=== PATIENT | female | born 1940 | race Caucasian/White ===

== ENCOUNTER 2020-04-01 14:38 | Outpatient (REF) | payer MEDICARE, SELFPAY ==
[2020-04-01 15:37] LABS: MANUAL DIFF FLAG NO
[2020-04-01 15:43] LABS: Basophils Absolute Auto 0.1 X10*3/uL (0.0-0.2); Eosinophils Absolute Auto 0.3 X10*3/uL (0.0-0.4); Eosinophils Percent Auto 3.5 % (0-4); Hematocrit 43.1 % (37-47); Hemoglobin 13.4 g/dl (12.0-16.0); Imm Gran Abs Auto 0.03 X10*3/uL (0.00-0.03); Imm Gran Pct Auto 0.4 % (0.0-0.4); Lymphocytes Absolute Auto 1.4 X10*3/uL (1.2-4.9); Lymphocytes Percent Auto 17.6 % (20-40); Mean Corpuscular HGB Conc 31.1 g/dl (31.0-35.0); Mean Corpuscular Hemoglobin 29.5 pg (27.0-33.0); Mean Corpuscular Volume 94.7 fL (80-98); Mean Platelet Volume 8.7 fL (9.4-12.3); Monocytes Absolute Auto 0.6 X10*3/uL (0.1-1.2); Monocytes Percent Auto 7.9 % (2-11); Neutrophils Absolute Auto 5.4 X10*3/uL (2.0-8.3); Neutrophils Percent Auto 69.6 % (45-73); Platelet Count 258 X10*3/uL (160-400); Red Blood Count 4.55 X10*6/uL (4.20-5.50); Red Cell Distribution Width 14.8 % (11.0-16.0); White Blood Count 7.7 X10*3/uL (4.8-10.8)
[2020-04-01 16:06] LABS: Alanine Aminotransferase 12 U/L (0-31); Alkaline Phosphatase 90 U/L (39-117); Anion Gap 13 (12-20); Aspartate Amino Transferase 16 U/L (5-31); Bilirubin Total 1.3 mg/dL (0.0-1.0); Blood Urea Nitrogen 11 mg/dL (9-16); Calcium 8.8 mg/dL (8.4-10.2); Carbon Dioxide 32 mmol/L (22-29); Chloride 100 mmol/L (96-108); Cholesterol 161 mg/dL; Estimated Glomerular Filt Rate 57; Glucose Fasting 117 mg/dL (60-99); HDL Cholesterol 42 mg/dL; LDL Cholesterol Calculated 99 mg/dl; Potassium 3.9 mmol/l (3.3-5.1); Sodium 141 mmol/L (135-145); Total Protein 6.5 g/dL (6.5-8.0); Triglycerides 103 mg/dL; Uric Acid 5.8 mg/dL (2.4-5.7)
[2020-04-01 16:08] LABS: B Type Natriuretic Peptide 157 pg/mL (<100)
[2020-04-01 16:16] LABS: Estimated Average Glucose 134 mg/dL; Hemoglobin A1c % 6.3 %
[2020-04-01 16:27] LABS: TSH reflex Free T4 3.17 mIU/mL (0.32-4.0)
[2020-04-01 16:38] LABS: Folate 5.2 ng/mL (> or = 4.0); Vitamin B12 486 pg/mL (200-900)
== END 2020-04-01 14:39 | disposition home or self-care (01) ==
LOC: HO.LAB 14:38
PROVIDERS: PCP Internal Medicine; Visit Provider Internal Medicine
DX: J44.9 Chronic obstructive pulmonary disease, unspecified (principal); I10 Essential (primary) hypertension; E78.5 Hyperlipidemia, unspecified; R73.01 Impaired fasting glucose; M10.9 Gout, unspecified; I50.9 Heart failure, unspecified; G62.9 Polyneuropathy, unspecified; I48.91 Unspecified atrial fibrillation; E66.9 Obesity, unspecified
CPT/HCPCS: 36415; 80053; 80061; 82607; 82746; 83036; 83880; 84443; 84550; 85025

== ENCOUNTER 2020-04-04 12:29 | Outpatient (REF) | payer MEDICARE, SELFPAY ==
[2020-04-04 13:07] LABS: Glucose Urine UA NEG (NEG); Leukocyte Esterase Urine 1+ (NEG); Nitrite Urine NEG (NEG); PH 5.5 (5.0-8.0); Specific Gravity - Urine 1.025 (1.005-1.025); Urine Blood 3+ (NEG); Urine Ketones NEG (NEG); Urine Protein 1+ MG/DL (NEG-TRACE)
[2020-04-04 13:09] LABS: Appearance Urine HAZY; Color Urine YELLOW
[2020-04-04 13:15] LABS: Bacteria Urine 1+ /LPF; Calcium Oxalate Crystals Urine 1+ /LPF; Mucus Urine 3+ /LPF; RBC Urine TNTC /HPF (0); Renal Epithelial Cells Urine 1+ /LPF; Squamous Epithelial Cell Urine 3+ /LPF
== END 2020-04-04 12:30 | disposition home or self-care (01) ==
LOC: HO.LNP 12:29
PROVIDERS: PCP Internal Medicine; Visit Provider Internal Medicine
DX: I10 Essential (primary) hypertension (principal); J44.9 Chronic obstructive pulmonary disease, unspecified; M10.9 Gout, unspecified
CPT/HCPCS: 81001; 87086

== ENCOUNTER → 2020-05-02 14:02 | Outpatient (BNVA) | payer MEDICARE, SELFPAY | PROVIDERS: PCP Internal Medicine; Visit Provider Internal Medicine Cardiovascular Disease | DX: I50.30 Unspecified diastolic (congestive) heart failure (principal); I11.0 Hypertensive heart disease with heart failure; I48.20 Chronic atrial fibrillation, unspecified; I73.9 Peripheral vascular disease, unspecified | CPT/HCPCS: 99212 ==

== ENCOUNTER 2020-09-19 15:11 | Outpatient (REF) | payer MEDICARE, SELFPAY ==
[2020-09-19 16:19] LABS: MANUAL DIFF FLAG NO
[2020-09-19 16:22] LABS: Glucose Urine UA NEG (NEG); Leukocyte Esterase Urine TRACE (NEG); Nitrite Urine NEG (NEG); UACC Culture Trigger YES; Urine Blood TRACE (NEG); Urine Ketones NEG (NEG); Urine Protein TRACE MG/DL (NEG-TRACE)
[2020-09-19 16:27] LABS: Basophils Absolute Auto 0.1 X10*3/uL (0.0-0.2); Basophils Percent Auto 0.7 % (0-2); Eosinophils Absolute Auto 0.3 X10*3/uL (0.0-0.4); Hematocrit 42.7 % (37-47); Hemoglobin 13.5 g/dl (12.0-16.0); Imm Gran Abs Auto 0.03 X10*3/uL (0.00-0.03); Imm Gran Pct Auto 0.4 % (0.0-0.4); Lymphocytes Absolute Auto 1.6 X10*3/uL (1.2-4.9); Lymphocytes Percent Auto 19.5 % (20-40); Mean Corpuscular HGB Conc 31.6 g/dl (31.0-35.0); Mean Corpuscular Hemoglobin 30.6 pg (27.0-33.0); Mean Corpuscular Volume 96.8 fL (80-98); Monocytes Absolute Auto 0.7 X10*3/uL (0.1-1.2); Monocytes Percent Auto 8.6 % (2-11); Neutrophils Absolute Auto 5.7 X10*3/uL (2.0-8.3); Neutrophils Percent Auto 67.8 % (45-73); Platelet Count 222 X10*3/uL (160-400); Red Blood Count 4.41 X10*6/uL (4.20-5.50); Red Cell Distribution Width 14.9 % (11.0-16.0); White Blood Count 8.4 X10*3/uL (4.8-10.8)
[2020-09-19 16:46] LABS: Alanine Aminotransferase 14 U/L (0-31); Albumin Level 4.2 g/dL (3.5-5.0); Alkaline Phosphatase 80 U/L (39-117); Anion Gap 13 (12-20); Aspartate Amino Transferase 18 U/L (5-31); Bilirubin Total 1.4 mg/dL (0.0-1.0); Blood Urea Nitrogen 16 mg/dL (9-16); Calcium 9.8 mg/dL (8.4-10.2); Carbon Dioxide 34 mmol/L (22-29); Chloride 98 mmol/L (96-108); Cholesterol 181 mg/dL; Estimated Glomerular Filt Rate 52; Glucose Random 110 mg/dL (60-115); HDL Cholesterol 44 mg/dL; LDL Cholesterol Calculated 115 mg/dl; Potassium 3.5 mmol/L (3.3-5.1); Sodium 141 mmol/L (135-145); Total Protein 6.5 g/dL (6.5-8.0); Triglycerides 113 mg/dL; Uric Acid 7.7 mg/dL (2.4-5.7)
[2020-09-19 16:53] LABS: B Type Natriuretic Peptide 184 pg/mL (<100)
[2020-09-19 17:04] LABS: Appearance Urine CLEAR; Color Urine YELLOW
[2020-09-19 17:07] LABS: TSH reflex Free T4 1.65 uIU/mL (0.32-4.0)
[2020-09-19 17:19] LABS: Folate 4.2 ng/mL (> or = 4.0); Vitamin B12 399 pg/mL (200-900)
[2020-09-19 17:26] LABS: Bacteria Urine 2+ /LPF; Renal Epithelial Cells Urine 1+ /LPF; Squamous Epithelial Cell Urine 3+ /LPF; UACC CULT YES
[2020-09-20 04:57] LABS: Estimated Average Glucose 114 mg/dL; Hemoglobin A1c % 5.6 %
== END 2020-09-19 15:12 | disposition home or self-care (01) ==
LOC: HO.LAB 15:11
PROVIDERS: PCP Internal Medicine; Visit Provider Internal Medicine
DX: I11.0 Hypertensive heart disease with heart failure (principal); I50.9 Heart failure, unspecified; I48.91 Unspecified atrial fibrillation; E78.5 Hyperlipidemia, unspecified; E66.9 Obesity, unspecified; M10.9 Gout, unspecified; G62.9 Polyneuropathy, unspecified; J44.9 Chronic obstructive pulmonary disease, unspecified; R73.01 Impaired fasting glucose
CPT/HCPCS: 36415; 80053; 80061; 81001; 82607; 82746; 83036; 83880; 84443; 84550; 85025; 87086

== ENCOUNTER 2020-09-29 10:24 | Emergency (ER) | payer MEDICARE, SELFPAY ==
[2020-09-29] VITALS (9 sets, daily range): BP systolic 137–192; BP diastolic 70–93; PULSE 83–96; RESP 18–21; TEMP 35.9; O2SAT 94–98; BMI 34.4
--- NOTE | ~2020-09-29 | CT_ITS ---
EXAMINATION: CT angio head neck CLINICAL INFORMATION: Carotid occlusion/stroke. COMPARISON: CT scan of the head 09/29/2020. TECHNIQUE: Right Of Way Cutter images were obtained. A CT angiogram of the head and neck was performed in the arterial phase after the intravenous administration of 50 mL Omnipaque 350. Delayed postcontrast images of the head were also obtained. MIP reconstructions were generated in multiple orientations at the acquisition workstation. Multiple three-dimensional surface rendered images and maximum intensity projection images were generated on a dedicated 3-D lab workstation. Arterial stenoses are measured in accordance with NASCET criteria or similar method if applicable. This CT examination was performed using dose optimization techniques as appropriate, including one or more of the following: Automated exposure control, iterative reconstruction, and adjustment of technique factors (mA and/or kVp) according to patient size (this includes techniques or standardized protocols for targeted exams where dose is matched to indication/reason for exam). Total exam dose-length product 1630 mGy-cm FINDINGS: Head: Postcontrast images reveal no abnormal mass or enhancement within the intracranial compartment. There are scattered nonspecific foci of hypoattenuation within the white matter that most likely represent a chronic manifestation of small vessel. Wright-white matter differentiation is otherwise preserved and there is no evidence of acute territorial infarct. No intracranial mass effect or midline shift. Lateral and third ventricles are normal. No hydrocephalus. The calvarium and skull base are intact. Mastoid air cells and middle ear cavities are well aerated. No active paranasal sinus disease. CT angiogram neck: The aortic arch apex is normal. 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 Scattered atheromatous calcifications involve both common carotid arteries and carotid bifurcations without associated stenosis. The extracranial internal carotid arteries are patent. Mild to moderate focal narrowing at the origin of the right vertebral artery. The cervical segments of the vertebral arteries are otherwise widely patent. CT angiogram head: Scattered atheromatous calcification involves the cavernous and supraclinoid segments of both internal carotid arteries without associated vascular stenosis. The intradural vertebral artery segments are widely patent. There is however mild to moderate diffuse irregular narrowing involving the basilar artery. Mild to moderate segmental narrowing involving both posterior cerebral arteries. Anterior and middle cerebral arteries are unremarkable. No intracranial large vessel occlusion. Other: There are heterogeneously enhancing nodules within the left lobe of the thyroid gland extending into the anterior mediastinum causing rightward displacement of the subglottic airway. Soft tissues of the neck are otherwise unremarkable. There is centrilobular emphysema involving the apices of both lungs. There is advanced multilevel degenerative spondylosis of the cervical spine. No worrisome lytic or blastic osseous lesion. CT/CT angio head neck IMPRESSION: The left subclavian artery is occluded at its origin and there is reconstitution of contrast filling of the vessel distally, presumably secondary to retrograde flow through the left vertebral artery. These findings indicate the likelihood of underlying subclavian steal syndrome. Mild to moderate focal narrowing at the origin of the right vertebral artery. Cervical segments of the carotid arteries are widely patent. There is mild to moderate diffuse irregular narrowing involving the basilar artery and segmental narrowing involving both posterior cerebral arteries. Otherwise no intracranial large vessel occlusion. 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 Centrilobular emphysema is visualized at the apices of both lungs.
--- NOTE | ~2020-09-29 | CT_ITS ---
EXAMINATION: CT BRAIN AND CT CERVICAL SPINE WITHOUT CONTRAST. CLINICAL INFORMATION: Dizziness for several days with fall COMPARISON: CT brain 09/15/2018 TECHNIQUE: 5 mm thin axial and reformatted 2 mm thin sagittal and coronal images of were obtained. Subsequently axial 3 mm thin and reformatted 2 mm thin sagittal and coronal images of chest cervical spine were obtained. DLP [id number] FINDINGS: Brain: There is no acute intra-axial, extra-axial bleed, masses or midline shift. Both lateral ventricles are symmetrical in size and configuration but enlarged. There is diffuse periventricular hypodensity suggestive of chronic small vessel ischemic changes. Bone windows reveal no calvarial abnormality. There is no scalp soft tissue abnormality. Bilateral paranasal sinuses and mastoid air cells are well-aerated. Cervical spine: There is mild straightening of cervical lordosis. The vertebral heights and alignment is normal. There is loss of C4-C5, C5-C6 and C6-C7 disc heights. Moderate ventral and dorsal spondylosis C4-C5, C5-C6 and C6-C7 disc levels. No visible acute fracture, dislocation or lytic process seen. There is mild superior spondylosis at C1-C2 disc level as well. There is moderate right C2-C3, bilateral C3-C4, C5-C6 facet joint arthropathy and hypertrophy. Bilateral parotid, submandibular glands are unremarkable. There is significantly enlarged and heterogenous left thyroid lobe with substernal extension likely goiter. There is mild shift of trachea to the right. The lung apices are clear. CT/CT cervical spine wo con IMPRESSION: No acute intracranial process seen. Age-related mild cerebral volume loss with chronic small vessel ischemic changes. Straightening of cervical lordosis likely spasm. There are degenerative disc changes C4-C5, C5-C6 and C6-C7 disc levels with spondylosis. No visible acute fracture or dislocation seen. 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
--- NOTE | ~2020-09-29 | CT_ITS ---
EXAMINATION: CT CHEST WITHOUT CONTRAST CLINICAL INFORMATION: Pneumonia. COMPARISON: None. TECHNIQUE: Multidetector volumetric CT imaging of the chest was done. Axial MIP volume rendering provided. Sagittal and coronal reformatted images were obtained. This CT examination was performed using dose optimization techniques as appropriate, variously including the following: *Automated exposure control *Adjustment of mA and/or kV according to patient size (this includes techniques or standardized protocols for targeted exams where dose is matched to indication/reason for exam; i.e. extremities or head) *Use of iterative reconstruction technique DLP: 429 mGy-cm. FINDINGS: SPINE SPECIALIST: Hyperinflated lungs. LUNGS: There is centrilobular emphysema with diffuse ground-glass attenuation seen throughout both lungs. There is a 2 mm nodule left upper lobe image 82/5, a 2 mm nodule right upper lobe image 90/5, a 2 nodule right upper lobe image 142/5, probably calcified nodule right lower lobe image 198/5 and calcified 2 mm nodule left lower lobe, CP angle image 445/5. There are focal atelectatic changes right middle lobe, plate-like atelectasis right lower lobe and left lower lobe. There is mild thickening of bilateral superior major fissures. MEDIASTINUM: The left thyroid lobe is heterogenous and enlarged with substernal extension suggestive of goiter. Central trachea and the bronchi are widely patent. The heart size is normal. Mild ectasia of the aorta is noted but no definite aneurysmal dilatation. Heart size enlarged with coronary artery calcifications present. No abnormal size mediastinal or hilar lymph nodes seen. There is a small hiatal hernia. PLEURA: There is no pleural effusion. No pleural mass or thickening. AXILLA: No lymphadenopathy. UPPER ABDOMEN: Unremarkable. OSSEOUS STRUCTURES: No lytic or sclerotic process seen. There is moderate ventral spondylosis in mid dorsal spine. CT/CT chest wo con IMPRESSION: Emphysema with diffuse ground-glass attenuation, nonspecific. There are several calcified and noncalcified pulmonary nodules in the range of 1-2 mm. No confluent infiltrate. There are atelectatic changes as described above. There is mild bilateral superior major pleural thickening.
--- NOTE | ~2020-09-29 | XR_ITS ---
EXAMINATION: XR CHEST CLINICAL INFORMATION: Pneumonia. COMPARISON: Chest 4:30 TECHNIQUE: Frontal view of the chest was obtained. FINDINGS: The lungs are well-expanded with increased markings in both upper lobes. The heart size is enlarged. Pulmonary vascularity is within normal limits. No gross bony abnormality. XR/XR chest 1V IMPRESSION: Increased interstitial markings in both upper lobes question interstitial pneumonitis or edema.
--- NOTE | 2020-09-29 10:43 | ECG_ITS ---
Test Reason : DIZZINESS Blood Pressure : / mmHG Vent. Rate : 078 BPM Atrial Rate : 083 BPM P-R Int : 000 ms QRS Dur : 158 ms QT Int : 446 ms P-R-T Axes : 000 -52 114 degrees QTc Int : 508 ms Atrial fibrillation with premature ventricular or aberrantly conducted complexes Left axis deviation Left bundle branch block Abnormal ECG When compared with ECG of 15-SEP-2018 05:03, No significant change was found Referred By: Maynor Velazquez Electronically Signed By:BRANDON VARELA MD
--- NOTE | 2020-09-29 11:06 | ED.DIZZY ---
HPI - Dizziness General Chief Complaint: Dizziness Stated Complaint: dizziness Time Seen by Provider: 09/29/20 10:43 Source: patient Mode of arrival: ambulatory Limitations: no limitations History of Present Illness HPI Narrative: Patient presents to ED for dizziness described as the rooms spinning for the past 2 days. Patient states being hard to ambulate due to dizziness. Patient states she has had this problem before in the past was informed she had vertigo and was on meclizine. Patient did not have any meclizine at home. Patient denies any chest pain, shortness of breath, slurred speech, loss of vision, paralysis of extremities, facial droop, headache, or any recent trauma. MD elicited complaint: dizziness Related Data Home Medications Medication Instructions Recorded Confirmed apixaban 5 mg tablet 5 mg PO BID 05/02/20 09/21/20 gabapentin 100 mg capsule 100 mg PO BEDTIME cap 05/02/20 09/21/20 nortriptyline 25 mg capsule 25 mg PO BID cap 05/02/20 09/21/20 Previous Rx's Medication Instructions Recorded atorvastatin 40 mg tablet 40 mg PO DAILY #90 tab 03/08/20 furosemide 40 mg tablet See Rx Instructions PO DAILY 90 05/19/20 Days #150 tab metoprolol succinate 25 mg 25 mg PO DAILY 90 Days #90 tab 05/19/20 tablet,extended release 24 hr allopurinol 100 mg tablet 100 mg PO BID #180 tab 05/31/20 trazodone 50 mg tablet 75 mg PO BEDTIME PRN 90 Days #135 09/21/20 tab aspirin 81 mg PO DAILY #30 tab 09/29/20 meclizine 25 mg PO TID PRN #30 tab 09/29/20 meclizine 12.5 mg tablet 12.5 mg PO TID #30 tab 09/29/20 Allergies Allergy/AdvReac Type Severity Reaction Status Date / Time CHAIM Inhibitors Allergy Unknown Cough Verified 09/21/20 16:38 lorazepam [Ativan] AdvReac Unknown blacked out Verified 09/21/20 16:38 zolpidem AdvReac Unknown sleepwalkin Verified 09/21/20 16:38 g Review of Systems Review of Systems: Yes all other systems are reviewed and are negative Constitutional: Constitutional: Reports as per HPI and Reports no additional constitutional complaints Eyes: Eyes: Reports as per HPI and Reports no additional eye complaints ENT: Reports system reviewed and no additional complaints, except as documented, Reports as per HPI, Reports vertigo and Reports dizziness Cardiovascular: Cardiovascular: Reports as per HPI and Reports no additional cardiovascular complaints Respiratory: Respiratory: Reports as per HPI and Reports no additional respiratory complaints Gastrointestinal: Gastrointestinal: Reports as per HPI and Reports no additional gastrointestinal complaints Genitourinary: Genitourinary: Reports no additional female genitourinary complaints and Reports as per HPI Musculoskeletal: Musculoskeletal: Reports no additional musculoskeletal complaints and Reports as per HPI Neurologic: Reports system reviewed and no additional complaints, except as documented, Reports as per HPI, Reports vertigo and Reports dizziness Psychiatric: Psychiatric: Reports no additional psychiatric complaints and Reports as per HPI [facility] Past Medical History Medical History (Updated 09/29/20 @ 17:20 by JEFFERY Marrero) (HFpEF) heart failure with preserved ejection fraction Benign essential hypertension Biatrial enlargement Chronic atrial fibrillation Gout Hematuria, microscopic HTN (hypertension) Insomnia Neuropathy Obesity Obesity (BMI 30-39.9) Pure hypercholesterolemia PVD (peripheral vascular disease) Urinary incontinence Surgical History (Updated 09/22/20 @ 01:34 by Kostas Baltazar MD) History of cataract surgery History of knee replacement procedure of right knee History of left knee replacement History of tonsillectomy Hx of basal cell carcinoma excision Family History Family History Father Alcoholism Mother Colon cancer Brother No problems noted. Sister In good health Son In good health Son In good health Daughter In good health Daughter In good health Social History Social History Alcohol intake: never Smoking Status: Never smoker Use of substances other than those prescribed or required for medical reasons: No Advance Directives: No Advance Directives Information Provided: No Physical Exam Vital Signs: Vital Signs: Last Vital Signs Temp 96.6 F L 09/29/20 10:31 Pulse 96 09/29/20 17:59 Resp 18 09/29/20 17:59 BP 192/93 H 09/29/20 17:59 Pulse Ox 97 09/29/20 15:20 Body Mass Index 34.4 Const: General: cooperative, healthy appearing, comfortable, no acute distress, well developed, alert, awake and Physically active Orientation/consciousness: patient oriented x3 HENMT: Head: Yes normal to inspection, Yes No palpable skull fracture present, Yes normocephalic and Yes atraumatic Eyes: Other: Positive for mild horizontal nystagmus. General: appearance normal, both eyes and all related structures Neck: Neck: Yes normal visual inspection, Yes full ROM, Yes no lymphadenopathy, Yes no meningeal signs, Yes trachea midline, Yes supple and No tender Chest: Chest palpation & inspection: normal inspection of the chest and normal palpation of entire chest wall Resp: Effort & Inspection: normal respiratory effort and able to speak in complete sentences Auscultation: clear to auscultation bilaterally Cardio: Jugular venous distension: no JVD Heart sounds: S1 normal heart sound present and S2 normal heart sound present GI: Inspection: Yes normal to inspection and No abdominal wall ecchymosis Palpation (GI): Soft to palpation, not firm, nontender, no guarding and not rigid : General: No CVA tenderness and Yes no CVA tenderness Back/Spine/Pelvis: Back: no CVA tenderness, No CVA tenderness and No back tenderness Skin: General skin exam: no rashes or lesions noted and elasticity normal Neuro: Other: Negative facial droop. Negative slurred speech. All extremities equal strength 5+. Negative pronator drift. [id number] and rapid hand movement intact. All cranial nerves intact. negative rhomber General: patient oriented x3, no meningeal signs and CN's II-XI intact bilaterally Cranial nerves: Yes CN's II-XII intact bilaterally Extrem: Other: Chronic lower extremity swelling/pain edema due to CHF General: Yes normal to inspection and Yes full ROM Psych: Appearance: grossly normal, well kempt and not disheveled Course Course Course Narrative: Patient seen for dizziness described as vertigo. Will give meclizine and fluids. Will do orthostatics. We will do cardiac workup due to age and past medical history. Also be sent for head CT. Reevaluation(s) Reevaluation #1: Initial EKG negative for STEMI. Shows rate controlled atrial fibrillation. Head CT negative for bleed or acute stroke. Cervical spine negative for fracture. Chest x-ray shows Edema versus interstitial pneumonitis. Was sent for head CT to evaluate carotids. Patient feels better. Chest CT was ordered by accident not suspecting PE. Patient is not having any chest pain, shortness of breath, or passing out. Patient states no history of DVT. Tried chest CT will be ordered to confirm for pneumonia. Not able to do IV contrast for chest CT or CT of head and neck. Orthostatics negative. Patient feeling better. First troponin negative. Neuro exam is intact. Negative for any neuro deficit. Upon review of history with patient and daughter patient states last week patient fell twice. Patient states both episodes of falling did not occur by dizziness. Patient states both time she tripped and loss of footing which caused her to fall. 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 I was called by radiologist. Due to this reading will call Dr. Moreno of vascular surgery. UA shows UTI will be treated. After receiving meclizine patient still feel dizzy ambulation. Reevaluation #3: Spoke with Dr. Moreno of vascular surgery who states presently patient does not need to be admitted and can be followed up as an outpatient. He was informed of patient's hisotry, physical exam, and diagnostics. He recommends aspirin 81 mg daily. Patient able to ambulate with help with myself and daughter holding her. Patient usually ambulate with a rolling walker which she does not have in the ED. Spoke with hospitalist Dr. Méndez for admission. Tried to admit patient. He evaluated patient's chest CT and states there was no pneumonia on the CT. Also he states patient is not having a UTI and this is a dirty catch. Patient not having urinary symptoms. He does not recommend any antibiotics for the urine or chest CT reading pain CT shows emphysema. Patient informed me she has history of COPD. Dr. Méndez evaluated patient's labs, vital signs, and imagings and does not recommend admission. Dr. Méndez recommended states patient could benefit from placement possibly short-term rehab. Spoke with Kristina of case managment about placement and she states she will talk to family if there was agreeable to physical therapy for possible placement to short-term rehab. Spoke with patient and in front of her daughter she states she did not want to be placed in short-term rehab or evaluated by physical therapy. She did not want to stay overnight. She states when she gets home she will be able to walk with her rolling walker. And patient states this morning patient although she was dizzy was able to ambulate with her walker at home all day before coming to the ER. Not suspecting posterior infarction. Negative Romberg test and patient able to ambulate with help. Negative for ataxia. Second troponin did not increase by 50%. Blood pressure was elevated later during ED visit due to patient not taking her hypertensive meds since the past two days because she thought they will worsen her dizziness. Negaive for any neuro deficits. Patient given her metropolol and lasix dose in the ED before discharge due to repeat blood pressure of systolic 192. Patient states she feels better than she did before discharge. MDM - Dizziness MDM Narrative Medical decision making narrative: Subclavian steal syndrome. Dizziness. Lab Data Result diagrams: 09/29/20 11:42 09/29/20 11:42 Labs: Lab Results 09/29/20 09/29/20 09/29/20 Range/Units 11:42 11:42 11:42 WBC 8.4 (4.8-10.8) X10*3/uL RBC 4.32 (4.20-5.50) X10*6/uL Hgb 13.3 (12.0-16.0) g/dl Hct 42.0 (37-47) % MCV 97.2 (80-98) fL MCH 30.8 (27.0-33.0) pg MCHC 31.7 (31.0-35.0) g/dl RDW 14.9 (11.0-16.0) % Plt Count 224 (160-400) X10*3/uL MPV 8.6 L (9.4-12.3) fL Immature Gran % (Auto) 0.4 (0.0-0.4) % Neut % (Auto) 71.7 (45-73) % Lymph % (Auto) 15.3 L (20-40) % [place] % (Auto) 8.2 (2-11) % Eos % (Auto) 3.6 (0-4) % Baso % (Auto) 0.8 (0-2) % Lymph # (Auto) 1.3 (1.2-4.9) X10*3/uL [place] # (Auto) 0.7 (0.1-1.2) X10*3/uL Eos # (Auto) 0.3 (0.0-0.4) X10*3/uL Baso # (Auto) 0.1 (0.0-0.2) X10*3/uL Abs Immat Gran (auto) 0.03 (0.00-0.03) X10*3/uL Absolute Neuts (auto) 6.1 (2.0-8.3) X10*3/uL Absolute Nucleated RBC 0.000 (0.0-0.012) X10*3/uL Nucleated RBC % (auto) 0.0 (0.0-0.2) /100WBC PT 14.8 H (10.8-13.0) SEC INR 1.2 H (0.9-1.1) APTT 36.5 (24.1-38.0) SEC Sodium 142 (135-145) mmol/L Potassium 3.8 (3.3-5.1) mmol/L Chloride 101 (96-108) mmol/L Carbon Dioxide 34 H (22-29) mmol/L Anion Gap 11 L (12-20) BUN 13 (9-16) mg/dL Creatinine 0.90 (0.5-1.4) mg/dL Estim Creat Clear Calc 59.4 Estimated GFR > 60 Random Glucose 108 (60-115) mg/dL Lactic Acid (0.5-2.0) mmol/L Calcium 9.9 (8.4-10.2) mg/dL Total Bilirubin 1.2 H (0.0-1.0) mg/dL AST 13 (5-31) U/L ALT 12 (0-31) U/L Alkaline Phosphatase 84 (39-117) U/L Troponin I High Sens (<3.5-17.0) ng/L B-Natriuretic Peptide (<100) pg/mL Total Protein 6.2 L (6.5-8.0) g/dL Albumin 4.0 (3.5-5.0) g/dL Urine Color Urine Appearance Urine pH (5.0-8.0) Ur Specific [place] (1.005-1.025) Urine Protein (NEG-TRACE) MG/DL Urine Glucose (UA) (NEG) MG/DL Urine Ketones (NEG) MG/DL Urine Blood (NEG) Urine Nitrite (NEG) Ur Leukocyte Esterase (NEG) Urine RBC (0) /HPF Urine WBC (0-4) /HPF Ur Squamous Epith Cells /LPF Urine Bacteria /LPF Urine Yeast /HPF COVID-19 (BILLY) (Negative) COVID-19 Clin Com 09/29/20 09/29/20 09/29/20 Range/Units 11:42 11:43 11:43 WBC (4.8-10.8) X10*3/uL RBC (4.20-5.50) X10*6/uL Hgb (12.0-16.0) g/dl Hct (37-47) % MCV (80-98) fL MCH (27.0-33.0) pg MCHC (31.0-35.0) g/dl RDW (11.0-16.0) % Plt Count (160-400) X10*3/uL MPV (9.4-12.3) fL Immature Gran % (Auto) (0.0-0.4) % Neut % (Auto) (45-73) % Lymph % (Auto) (20-40) % [place] % (Auto) (2-11) % Eos % (Auto) (0-4) % Baso % (Auto) (0-2) % Lymph # (Auto) (1.2-4.9) X10*3/uL [place] # (Auto) (0.1-1.2) X10*3/uL Eos # (Auto) (0.0-0.4) X10*3/uL Baso # (Auto) (0.0-0.2) X10*3/uL Abs Immat Gran (auto) (0.00-0.03) X10*3/uL Absolute Neuts (auto) (2.0-8.3) X10*3/uL Absolute Nucleated RBC (0.0-0.012) X10*3/uL Nucleated RBC % (auto) (0.0-0.2) /100WBC PT (10.8-13.0) SEC INR (0.9-1.1) APTT (24.1-38.0) SEC Sodium (135-145) mmol/L Potassium (3.3-5.1) mmol/L Chloride (96-108) mmol/L Carbon Dioxide (22-29) mmol/L Anion Gap (12-20) BUN (9-16) mg/dL Creatinine (0.5-1.4) mg/dL Estim Creat Clear Calc Estimated GFR Random Glucose (60-115) mg/dL Lactic Acid (0.5-2.0) mmol/L Calcium (8.4-10.2) mg/dL Total Bilirubin (0.0-1.0) mg/dL AST (5-31) U/L ALT (0-31) U/L Alkaline Phosphatase (39-117) U/L Troponin I High Sens 15.0 (<3.5-17.0) ng/L B-Natriuretic Peptide 169 H (<100) pg/mL Total Protein (6.5-8.0) g/dL Albumin (3.5-5.0) g/dL Urine Color Urine Appearance Urine pH (5.0-8.0) Ur Specific [place] (1.005-1.025) Urine Protein (NEG-TRACE) MG/DL Urine Glucose (UA) (NEG) MG/DL Urine Ketones (NEG) MG/DL Urine Blood (NEG) Urine Nitrite (NEG) Ur Leukocyte Esterase (NEG) Urine RBC (0) /HPF Urine WBC (0-4) /HPF Ur Squamous Epith Cells /LPF Urine Bacteria /LPF Urine Yeast /HPF COVID-19 (BILLY) Negative (Negative) COVID-19 Clin Com See Note 09/29/20 09/29/20 09/29/20 Range/Units 14:11 16:10 16:10 WBC (4.8-10.8) X10*3/uL RBC (4.20-5.50) X10*6/uL Hgb (12.0-16.0) g/dl Hct (37-47) % MCV (80-98) fL MCH (27.0-33.0) pg MCHC (31.0-35.0) g/dl RDW (11.0-16.0) % Plt Count (160-400) X10*3/uL MPV (9.4-12.3) fL Immature Gran % (Auto) (0.0-0.4) % Neut % (Auto) (45-73) % Lymph % (Auto) (20-40) % [place] % (Auto) (2-11) % Eos % (Auto) (0-4) % Baso % (Auto) (0-2) % Lymph # (Auto) (1.2-4.9) X10*3/uL [place] # (Auto) (0.1-1.2) X10*3/uL Eos # (Auto) (0.0-0.4) X10*3/uL Baso # (Auto) (0.0-0.2) X10*3/uL Abs Immat Gran (auto) (0.00-0.03) X10*3/uL Absolute Neuts (auto) (2.0-8.3) X10*3/uL Absolute Nucleated RBC (0.0-0.012) X10*3/uL Nucleated RBC % (auto) (0.0-0.2) /100WBC PT (10.8-13.0) SEC INR (0.9-1.1) APTT (24.1-38.0) SEC Sodium (135-145) mmol/L Potassium (3.3-5.1) mmol/L Chloride (96-108) mmol/L Carbon Dioxide (22-29) mmol/L Anion Gap (12-20) BUN (9-16) mg/dL Creatinine (0.5-1.4) mg/dL Estim Creat Clear Calc Estimated GFR Random Glucose (60-115) mg/dL Lactic Acid 1.0 (0.5-2.0) mmol/L Calcium (8.4-10.2) mg/dL Total Bilirubin (0.0-1.0) mg/dL AST (5-31) U/L ALT (0-31) U/L Alkaline Phosphatase (39-117) U/L Troponin I High Sens 13.9 (<3.5-17.0) ng/L B-Natriuretic Peptide (<100) pg/mL Total Protein (6.5-8.0) g/dL Albumin (3.5-5.0) g/dL Urine Color YELLOW Urine Appearance CLOUDY Urine pH 7.5 (5.0-8.0) Ur Specific [place] <= 1.005 (1.005-1.025) Urine Protein NEG (NEG-TRACE) MG/DL Urine Glucose (UA) NEG (NEG) MG/DL Urine Ketones NEG (NEG) MG/DL Urine Blood TRACE (NEG) Urine Nitrite NEG (NEG) Ur Leukocyte Esterase 2+ H (NEG) Urine RBC 5-9 H (0) /HPF Urine WBC 30-49 H (0-4) /HPF Ur Squamous Epith Cells 4+ /LPF Urine Bacteria 1+ /LPF Urine Yeast TRACE /HPF COVID-19 (BILLY) (Negative) COVID-19 Clin Com ECG Data Interpretation: Atrial fibrillation with premature ventricular complexes. Ventricular rate 78. QRS duration 158. QTC 508. Negative STEMI. Discharge Plan Discharge Clinical Impression: Dizziness, Steal syndrome, subclavian Patient Disposition: Home, Self-Care Instructions: Dizziness (ED) Additional Instructions: Return to the ED for worsening dizziness, slurred speech, loss of vision, paralysis of extremities, headache, inability to walk, facial droop, or any other concerning symptoms. Prescriptions: New meclizine 25 mg tablet 25 mg PO TID PRN (Reason: dizzines) Qty: 30 RF: 0 aspirin 81 mg tablet,chewable 81 mg PO DAILY Qty: 30 RF: 0 No Action atorvastatin 40 mg tablet 40 mg PO DAILY Qty: 90 RF: 3 metoprolol succinate 25 mg tablet extended release 24 hr 25 mg PO DAILY 90 Days Qty: 90 RF: 3 furosemide [Lasix] 40 mg tablet See Rx Instructions PO DAILY 90 Days Qty: 150 RF: 3 allopurinol 100 mg tablet 100 mg PO BID Qty: 180 RF: 3 meclizine 12.5 mg tablet 12.5 mg PO TID Qty: 30 RF: 0 trazodone 50 mg tablet 75 mg PO BEDTIME PRN (Reason: insomnia) 90 Days Qty: 135 RF: 1 apixaban 5 mg tablet 5 mg PO BID RF: 0 gabapentin 100 mg capsule 100 mg PO BEDTIME RF: 0 nortriptyline 25 mg capsule 25 mg PO BID RF: 0 Referrals: Kostas Baltazar MD [Primary Care Provider] - 2 days (Dizziness. Head CT shows subclavian steal syndrome.) Sai Moreno MD [Physician] - 2 days (Subclavian steal syndrome) Print Language: Colombian
[2020-09-29] MEDS: Meclizine HCl 25 MG TABLET 50 MG PO (11:08)
--- NOTE | 2020-09-29 11:33 | PC.NURSE ---
Pt alert, oriented, neuros intact, LSCTA VSS, skin pink, warm, dry. BLE edema daughter reports that is her baseline. O2Sat 88-90% RA while JEFFERY Mcguire at bedside. Pt encouraged to take slow deep breaths o2sat 96-97% RA. IV established x3 attempts. Pt awaiting CT scan, daughter at bedside.
[2020-09-29 11:55] LABS: MANUAL DIFF FLAG NO
[2020-09-29 11:56] LABS: Basophils Absolute Auto 0.1 X10*3/uL (0.0-0.2); Basophils Percent Auto 0.8 % (0-2); Eosinophils Absolute Auto 0.3 X10*3/uL (0.0-0.4); Eosinophils Percent Auto 3.6 % (0-4); Hemoglobin 13.3 g/dl (12.0-16.0); Imm Gran Abs Auto 0.03 X10*3/uL (0.00-0.03); Imm Gran Pct Auto 0.4 % (0.0-0.4); Lymphocytes Absolute Auto 1.3 X10*3/uL (1.2-4.9); Lymphocytes Percent Auto 15.3 % (20-40); Mean Corpuscular HGB Conc 31.7 g/dl (31.0-35.0); Mean Corpuscular Hemoglobin 30.8 pg (27.0-33.0); Mean Corpuscular Volume 97.2 fL (80-98); Mean Platelet Volume 8.6 fL (9.4-12.3); Monocytes Absolute Auto 0.7 X10*3/uL (0.1-1.2); Monocytes Percent Auto 8.2 % (2-11); Neutrophils Absolute Auto 6.1 X10*3/uL (2.0-8.3); Neutrophils Percent Auto 71.7 % (45-73); Platelet Count 224 X10*3/uL (160-400); Red Blood Count 4.32 X10*6/uL (4.20-5.50); Red Cell Distribution Width 14.9 % (11.0-16.0); White Blood Count 8.4 X10*3/uL (4.8-10.8)
[2020-09-29 12:07] LABS: INTERNATIONAL NORM RATIO 1.2 (0.9-1.1); Prothrombin Time 14.8 SEC (10.8-13.0)
[2020-09-29 12:10] LABS: Partial Thromboplastin Time 36.5 SEC (24.1-38.0)
[2020-09-29 12:15] LABS: COVID-19 Test Negative (Negative)
[2020-09-29 12:28] LABS: Alanine Aminotransferase 12 U/L (0-31); Alkaline Phosphatase 84 U/L (39-117); Anion Gap 11 (12-20); Aspartate Amino Transferase 13 U/L (5-31); B Type Natriuretic Peptide 169 pg/mL (<100); Bilirubin Total 1.2 mg/dL (0.0-1.0); Blood Urea Nitrogen 13 mg/dL (9-16); Calcium 9.9 mg/dL (8.4-10.2); Carbon Dioxide 34 mmol/L (22-29); Chloride 101 mmol/L (96-108); Creatinine Clr Calc Pharmacy 59.4; Estimated Glomerular Filt Rate > 60; Glucose Random 108 mg/dL (60-115); Potassium 3.8 mmol/L (3.3-5.1); Sodium 142 mmol/L (135-145); Total Protein 6.2 g/dL (6.5-8.0)
[2020-09-29] MEDS: 0.9 % Sodium Chloride 1,000 ML 999 ML IV (12:34)
[2020-09-29] MEDS: iohexoL 350 MG/ML 100 ML INFUS..BTL IV (13:44)
[2020-09-29 14:25] LABS: Glucose Urine UA NEG (NEG); Leukocyte Esterase Urine 2+ (NEG); Nitrite Urine NEG (NEG); PH 7.5 (5.0-8.0); Specific Gravity - Urine <= 1.005 (1.005-1.025); UACC Culture Trigger YES; Urine Blood TRACE (NEG); Urine Ketones NEG (NEG); Urine Protein NEG (NEG-TRACE)
[2020-09-29 14:26] LABS: Appearance Urine CLOUDY; Color Urine YELLOW
[2020-09-29 14:45] LABS: Bacteria Urine 1+ /LPF; Squamous Epithelial Cell Urine 4+ /LPF; WBC Urine 30-49 /HPF (0-4)
[2020-09-29] MEDS: ondansetron HCL 4 MG/2 ML VIAL IVPUSH (15:18)
--- NOTE | 2020-09-29 15:22 | PC.NURSE ---
Maynor GIL at bedside discussing results of CTA and consult to vascular surgery pending at this time. Pt denies pain. No c/omplaints offered with sitting in stretcher. Neuros are unchanged since admit here in ED. A fib on tele rate 80s Medicated with zofran for nausea
[2020-09-29 16:52] LABS: Troponin-I High Sensitivity 13.9 ng/L (<3.5-17.0)
[2020-09-29] MEDS: Metoprolol Succinate ER 25 MG TAB.ER.24H PO (17:58)
[2020-09-29] MEDS: Furosemide 40 MG TABLET PO (17:58)
--- NOTE | 2020-09-29 17:59 | PC.NURSE ---
BP 192/93, given home bp meds.
== END 2020-09-29 18:30 | disposition home or self-care (01) ==
PROVIDERS: Physician Assistant; Emergency Provider Emergency Medicine; PCP Internal Medicine
DX: R42 Dizziness and giddiness (principal); G45.8 Other transient cerebral ischemic attacks and related syndromes; R78.81 Bacteremia; R22.43 Localized swelling, mass and lump, lower limb, bilateral; M79.662 Pain in left lower leg; M79.661 Pain in right lower leg; Z20.822 Contact with and (suspected) exposure to COVID-19; I11.0 Hypertensive heart disease with heart failure; I50.9 Heart failure, unspecified; I48.20 Chronic atrial fibrillation, unspecified; I49.3 Ventricular premature depolarization; E78.00 Pure hypercholesterolemia, unspecified; J44.9 Chronic obstructive pulmonary disease, unspecified; Z91.81 History of falling; Z79.02 Long term (current) use of antithrombotics/antiplatelets; Z79.899 Other long term (current) drug therapy
CPT/HCPCS: 36415; 70450; 70496; 70498; 71045; 71250; 72125; 80053; 81001; 81003; 83605; 83880; 84484; 85025; 85610; 85730; 87040; 87077; 87086; 87147; 87186; 87205; 87635; 93005; 96361; 96365; 96366; 96372; 96375; 99285; J2405; Q9967

== ENCOUNTER 2020-10-03 11:49 | Emergency (ER) | payer MEDICARE, SELFPAY ==
--- NOTE | ~2020-10-03 | XR_ITS ---
EXAMINATION: XR CHEST CLINICAL INFORMATION: Hypoxia bacteremia COMPARISON: CT chest noncontrast 09/29/2020, chest radiographs 09/29/2020, 09/16/2018 TECHNIQUE: Frontal and 2 lateral views of the chest are obtained for 3 views. FINDINGS: There is blunting right lateral costophrenic angle and subsegmental atelectasis right posterior base. The remainder of the lungs are clear. The vascularity is normal. The cardiopericardial silhouette is mildly enlarged similar to prior chest radiographs. The hilar and mediastinal contours and bony structures are stable. XR/XR chest 2V IMPRESSION: Subsegmental atelectasis right posterior base. Trace right effusion.
[2020-10-03 12:33] VITALS: BP 134/62; PULSE 65; RESP 18; TEMP 36.3; O2SAT 90; BMI 34.4
[2020-10-03 14:40] LABS: MANUAL DIFF FLAG NO
[2020-10-03 14:41] LABS: Basophils Percent Auto 0.4 % (0-2); Eosinophils Absolute Auto 0.2 X10*3/uL (0.0-0.4); Eosinophils Percent Auto 2.6 % (0-4); Hematocrit 40.5 % (37-47); Hemoglobin 12.8 g/dl (12.0-16.0); Imm Gran Abs Auto 0.05 X10*3/uL (0.00-0.03); Imm Gran Pct Auto 0.6 % (0.0-0.4); Lymphocytes Absolute Auto 1.4 X10*3/uL (1.2-4.9); Lymphocytes Percent Auto 14.9 % (20-40); Mean Corpuscular HGB Conc 31.6 g/dl (31.0-35.0); Mean Corpuscular Hemoglobin 30.7 pg (27.0-33.0); Mean Corpuscular Volume 97.1 fL (80-98); Mean Platelet Volume 8.4 fL (9.4-12.3); Monocytes Absolute Auto 0.6 X10*3/uL (0.1-1.2); Monocytes Percent Auto 6.6 % (2-11); Neutrophils Absolute Auto 6.8 X10*3/uL (2.0-8.3); Neutrophils Percent Auto 74.9 % (45-73); Platelet Count 222 X10*3/uL (160-400); Red Blood Count 4.17 X10*6/uL (4.20-5.50); Red Cell Distribution Width 14.7 % (11.0-16.0); White Blood Count 9.1 X10*3/uL (4.8-10.8)
[2020-10-03 15:07] LABS: C Reactive Protein 1.13 mg/dL (< or = 0.50)
[2020-10-03 15:09] LABS: Alanine Aminotransferase 14 U/L (0-31); Alkaline Phosphatase 77 U/L (39-117); Anion Gap 12 (12-20); Aspartate Amino Transferase 17 U/L (5-31); Bilirubin Direct 0.4 mg/dL (0.0-0.5); Blood Urea Nitrogen 17 mg/dL (9-16); Calcium 9.2 mg/dL (8.4-10.2); Carbon Dioxide 34 mmol/L (22-29); Chloride 97 mmol/L (96-108); Creatinine Clr Calc Pharmacy 53.5; Estimated Glomerular Filt Rate 53; Glucose Random 119 mg/dL (60-115); Potassium 3.7 mmol/L (3.3-5.1); Sodium 139 mmol/L (135-145); Total Protein 6.3 g/dL (6.5-8.0)
[2020-10-03 15:26] LABS: Erythrocyte Sedimentation Rate 12 MM/HR (0-20)
--- NOTE | 2020-10-03 16:15 | ED.RECABL ---
HPI - Recheck/Abnormal Lab/Rx General Chief Complaint: Recheck/Abnormal Lab/Rx Stated Complaint: abn lab? Time Seen by Provider: 10/03/20 13:33 Source: patient and family Mode of arrival: ambulatory Limitations: no limitations History of Present Illness HPI narrative: 79 y/o female with history of afib on Eliquis, HFpEF, HTN, PVD, s/p bilateral knee replacements, vertigo and recently diagnosed subclavian steal syndrome who presents back to the ER today from home with positive blood cultures that were drawn on 09/29. Both cultures grew Staph capitis. She states since she has been home she has been doing generally well. She has been taking meclizine for her dizziness. She has had no fever, chills, SOB, cough, chest pain, abdominal pain or dysuria. She has had intermittent urinary incontinence but no urgency or frequency. She has no wounds or skin breakdown. MD complaint: abnormal lab Initial visit (ago): day(s) Initial visit for: other (dizziness) Returns today for: called because of abnormal lab/test Description of abnormal result: blood cultures positive Symptoms since prior visit: no new symptoms Associated symptoms: none Related Data Home Medications Medication Instructions Recorded Confirmed apixaban 5 mg tablet 5 mg PO BID 05/02/20 09/21/20 gabapentin 100 mg capsule 100 mg PO BEDTIME cap 05/02/20 09/21/20 nortriptyline 25 mg capsule 25 mg PO BID cap 05/02/20 09/21/20 Previous Rx's Medication Instructions Recorded atorvastatin 40 mg tablet 40 mg PO DAILY #90 tab 03/08/20 furosemide 40 mg tablet See Rx Instructions PO DAILY 90 05/19/20 Days #150 tab metoprolol succinate 25 mg 25 mg PO DAILY 90 Days #90 tab 05/19/20 tablet,extended release 24 hr allopurinol 100 mg tablet 100 mg PO BID #180 tab 05/31/20 trazodone 50 mg tablet 75 mg PO BEDTIME PRN 90 Days #135 09/21/20 tab aspirin 81 mg PO DAILY #30 tab 09/29/20 meclizine 25 mg PO TID PRN #30 tab 09/29/20 meclizine 12.5 mg tablet 12.5 mg PO TID #30 tab 09/29/20 levofloxacin 250 mg PO DAILY #3 tab 10/03/20 Allergies Allergy/AdvReac Type Severity Reaction Status Date / Time CHAIM Inhibitors Allergy Unknown Cough Verified 10/03/20 12:33 lorazepam [Ativan] AdvReac Unknown blacked out Verified 10/03/20 12:33 zolpidem AdvReac Unknown sleepwalkin Verified 10/03/20 12:33 g Review of Systems Review of Systems: Constitutional: No Fever, No Chills ENT/Mouth: No sore throat, No Rhinorrhea, No Swallowing Difficulty Eyes: No Eye Pain, No Swelling, No Redness Cardiovascular: No Chest Pain, No SOB, No Orthopnea, No Edema Respiratory: No Cough, No Sputum, No Wheezing, No dyspnea Gastrointestinal: No Nausea, No Vomiting, No Diarrhea, No abdominal Pain Genitourinary: No Dysuria, No Urinary Frequency, No Hematuria, +incontinence Musculoskeletal: No joint pain, No Myalgias Skin: No Skin Lesions, No rash Neuro: No Weakness, No Numbness, + Dizziness, No Headache Psych: No Anxiety/Panic, No Depression Heme/Lymph: + Bruising, No Lymphadenopathy Endocrine: No Polyuria, No Polydipsia PMFSH Past Medical History Attestation statement: The following information was validated with the patient. Medical History (HFpEF) heart failure with preserved ejection fraction Benign essential hypertension Biatrial enlargement Chronic atrial fibrillation Gout Hematuria, microscopic HTN (hypertension) Insomnia Neuropathy Obesity Obesity (BMI 30-39.9) Pure hypercholesterolemia PVD (peripheral vascular disease) Urinary incontinence Surgical History History of cataract surgery History of knee replacement procedure of right knee History of left knee replacement History of tonsillectomy Hx of basal cell carcinoma excision Family History Family History Father Alcoholism Mother Colon cancer Brother No problems noted. Sister In good health Son In good health Son In good health Daughter In good health Daughter In good health Social History Social History Alcohol intake: never Smoking Status: Never smoker Advance Directives: No Advance Directives Information Provided: Yes Physical Exam Vital Signs: Vital Signs: Last Vital Signs Temp 97.4 F 10/03/20 12:33 Pulse 65 10/03/20 12:33 Resp 18 10/03/20 12:33 BP 134/62 10/03/20 12:33 Pulse Ox 90 L 10/03/20 12:33 Body Mass Index 34.4 Appearance: Alert. Oriented X3. No acute distress. Eyes: Pupils equal, round and reactive to light. ENT: Pharynx normal. No palpable dental abscess. Neck: Normal inspection. Neck supple. CVS: irregularly irregular, regular rate/ Pulses normal. Respiratory: No respiratory distress. Breath sounds diminished at the bases. Speaking in full sentences. Abdomen: Soft and nontender. No suprapubic tenderness +BS x4 Back: no spinal tenderness. No coccy wounds. Skin: Skin warm and dry. Normal skin color. Normal skin turgor. No rashes. Extremities: Mild bilateral lower extremity edema with skin changes consistent with venous stasis. Neuro: Oriented X 3. No motor deficit. No sensory deficit. Course Course Course Narrative: 79 y/o female presenting with Staph capitis in blood cultures x2. She is afebrile, no leukocytosis. Her UA is positive for infection and she has some incontinence. No signs or symptoms of pyelonephritis or systemic infection. Case was d/w Dr. Sheets from [place] - she feels these blood cultures are contaminants even though is it 2/2 sets. She recommends repeating blood cultures and not treating. This was d/w the patient who is agreeable with plan. Given her UA we will treat with PO levaquin x3 days for uncomplicated UTI. Staph capitis is known skin dara and unlikely to be true pathogen in the blood. If repeat cultures are positive will call patient. She will come back to the ER if she develops fever or chills or any other concerning symptoms. Stable for d/c home. MDM - Recheck/Abnormal Lab/Rx Lab Data Result diagrams: 10/03/20 14:33 10/03/20 14:33 Labs: Lab Results 10/03/20 10/03/20 10/03/20 Range/Units 14:33 14:33 14:33 WBC 9.1 (4.8-10.8) X10*3/uL RBC 4.17 L (4.20-5.50) X10*6/uL Hgb 12.8 (12.0-16.0) g/dl Hct 40.5 (37-47) % MCV 97.1 (80-98) fL MCH 30.7 (27.0-33.0) pg MCHC 31.6 (31.0-35.0) g/dl RDW 14.7 (11.0-16.0) % Plt Count 222 (160-400) X10*3/uL MPV 8.4 L (9.4-12.3) fL Immature Gran % (Auto) 0.6 H (0.0-0.4) % Neut % (Auto) 74.9 H (45-73) % Lymph % (Auto) 14.9 L (20-40) % [place] % (Auto) 6.6 (2-11) % Eos % (Auto) 2.6 (0-4) % Baso % (Auto) 0.4 (0-2) % Lymph # (Auto) 1.4 (1.2-4.9) X10*3/uL [place] # (Auto) 0.6 (0.1-1.2) X10*3/uL Eos # (Auto) 0.2 (0.0-0.4) X10*3/uL Baso # (Auto) 0.0 (0.0-0.2) X10*3/uL Abs Immat Gran (auto) 0.05 H (0.00-0.03) X10*3/uL Absolute Neuts (auto) 6.8 (2.0-8.3) X10*3/uL Absolute Nucleated RBC 0.000 (0.0-0.012) X10*3/uL Nucleated RBC % (auto) 0.0 (0.0-0.2) /100WBC ESR 12 (0-20) MM/HR Hold Blue Top SEE NOTE Sodium (135-145) mmol/L Potassium (3.3-5.1) mmol/L Chloride (96-108) mmol/L Carbon Dioxide (22-29) mmol/L Anion Gap (12-20) BUN (9-16) mg/dL Creatinine (0.5-1.4) mg/dL Estim Creat Clear Calc Estimated GFR Random Glucose (60-115) mg/dL Calcium (8.4-10.2) mg/dL Magnesium (1.6-2.6) mg/dL Total Bilirubin (0.0-1.0) mg/dL Direct Bilirubin (0.0-0.5) mg/dL AST (5-31) U/L ALT (0-31) U/L Alkaline Phosphatase (39-117) U/L C-Reactive Protein (< or = 0.50) mg/dL Total Protein (6.5-8.0) g/dL Albumin (3.5-5.0) g/dL Procalcitonin ng/mL 10/03/20 10/03/20 10/03/20 Range/Units 14:33 14:33 14:38 WBC (4.8-10.8) X10*3/uL RBC (4.20-5.50) X10*6/uL Hgb (12.0-16.0) g/dl Hct (37-47) % MCV (80-98) fL MCH (27.0-33.0) pg MCHC (31.0-35.0) g/dl RDW (11.0-16.0) % Plt Count (160-400) X10*3/uL MPV (9.4-12.3) fL Immature Gran % (Auto) (0.0-0.4) % Neut % (Auto) (45-73) % Lymph % (Auto) (20-40) % [place] % (Auto) (2-11) % Eos % (Auto) (0-4) % Baso % (Auto) (0-2) % Lymph # (Auto) (1.2-4.9) X10*3/uL [place] # (Auto) (0.1-1.2) X10*3/uL Eos # (Auto) (0.0-0.4) X10*3/uL Baso # (Auto) (0.0-0.2) X10*3/uL Abs Immat Gran (auto) (0.00-0.03) X10*3/uL Absolute Neuts (auto) (2.0-8.3) X10*3/uL Absolute Nucleated RBC (0.0-0.012) X10*3/uL Nucleated RBC % (auto) (0.0-0.2) /100WBC ESR (0-20) MM/HR Hold Blue Top Sodium 139 (135-145) mmol/L Potassium 3.7 (3.3-5.1) mmol/L Chloride 97 (96-108) mmol/L Carbon Dioxide 34 H (22-29) mmol/L Anion Gap 12 (12-20) BUN 17 H (9-16) mg/dL Creatinine 1.00 (0.5-1.4) mg/dL Estim Creat Clear Calc 53.5 Estimated GFR 53 Random Glucose 119 H (60-115) mg/dL Calcium 9.2 D (8.4-10.2) mg/dL Magnesium 2.0 (1.6-2.6) mg/dL Total Bilirubin 1.0 (0.0-1.0) mg/dL Direct Bilirubin 0.4 (0.0-0.5) mg/dL AST 17 (5-31) U/L ALT 14 (0-31) U/L Alkaline Phosphatase 77 (39-117) U/L C-Reactive Protein 1.13 H (< or = 0.50) mg/dL Total Protein 6.3 L (6.5-8.0) g/dL Albumin 4.0 (3.5-5.0) g/dL Procalcitonin 0.05 ng/mL Discharge Plan Discharge Clinical Impression: UTI (urinary tract infection) Qualifiers: Urinary tract infection type: acute cystitis Hematuria presence: with hematuria Qualified Code(s): N30.01 - Acute cystitis with hematuria Patient Disposition: Home, Self-Care Instructions: Urinary Tract Infection in Older Adults (ED) Additional Instructions: Blood cultures were repeated today. If they end up being positive we will call you. Take the prescribed antibiotic for urinary tract infection. Follow up with your doctor. If you develop fever, chills, or any other concerning symptom come back to the ER for further evaluation. Prescriptions: New levofloxacin 250 mg tablet 250 mg PO DAILY Qty: 3 RF: 0 No Action atorvastatin 40 mg tablet 40 mg PO DAILY Qty: 90 RF: 3 metoprolol succinate 25 mg tablet extended release 24 hr 25 mg PO DAILY 90 Days Qty: 90 RF: 3 furosemide [Lasix] 40 mg tablet See Rx Instructions PO DAILY 90 Days Qty: 150 RF: 3 allopurinol 100 mg tablet 100 mg PO BID Qty: 180 RF: 3 meclizine 12.5 mg tablet 12.5 mg PO TID Qty: 30 RF: 0 meclizine 25 mg tablet 25 mg PO TID PRN (Reason: dizzines) Qty: 30 RF: 0 aspirin 81 mg tablet,chewable 81 mg PO DAILY Qty: 30 RF: 0 trazodone 50 mg tablet 75 mg PO BEDTIME PRN (Reason: insomnia) 90 Days Qty: 135 RF: 1 apixaban 5 mg tablet 5 mg PO BID RF: 0 gabapentin 100 mg capsule 100 mg PO BEDTIME RF: 0 nortriptyline 25 mg capsule 25 mg PO BID RF: 0 Interventions: ED Discharge Assessment Last Done: 10/03/20 16:48 Discharge Date/Time: 10/03/20 16:55
[2020-10-03 16:30] LABS: Procalcitonin 0.05 ng/mL
== END 2020-10-03 16:55 | disposition home or self-care (01) ==
PROVIDERS: Physician Assistant; Emergency Provider Emergency Medicine Emergency Medical Services; PCP Internal Medicine
DX: N30.01 Acute cystitis with hematuria (principal); R79.89 Other specified abnormal findings of blood chemistry; I10 Essential (primary) hypertension; R42 Dizziness and giddiness; Z79.899 Other long term (current) drug therapy
CPT/HCPCS: 36415; 71046; 80048; 80076; 83735; 84145; 85025; 85652; 86140; 87040; 99283

== ENCOUNTER → 2020-10-06 15:26 | Outpatient (BNVA) | payer MEDICARE, SELFPAY | PROVIDERS: PCP Internal Medicine; Visit Provider Surgery Vascular Surgery | DX: I70.8 Atherosclerosis of other arteries (principal); I83.12 Varicose veins of left lower extremity with inflammation | CPT/HCPCS: 99202 ==

== ENCOUNTER 2020-10-20 10:46 | Emergency (ER) | payer MEDICARE, SELFPAY ==
--- NOTE | ~2020-10-20 | CT_ITS ---
EXAMINATION: CT ABDOMEN AND PELVIS WITHOUT CONTRAST CLINICAL INFORMATION: Hematuria. COMPARISON: None TECHNIQUE: Multidetector volumetric imaging was performed from the superior aspect of the liver through the pubic symphysis. Sagittal and coronal reformatted images were obtained on the technologist's workstation. This CT examination was performed using dose optimization techniques as appropriate, variously including the following: *Automated exposure control *Adjustment of mA and/or kV according to patient size (this includes techniques or standardized protocols for targeted exams where dose is matched to indication/reason for exam; i.e. extremities or head) *Use of iterative reconstruction technique DLP: 945 mGy-cm FINDINGS: LUNG BASES: The heart size is borderline enlarged but the lung bases are well-expanded and clear. Minimal atelectatic changes are seen in the right middle lobe LIVER, GALLBLADDER, AND BILIARY TREE: The liver is normal in size, shape, and attenuation. No focal hepatic lesion or biliary ductal dilatation is present. There is solitary 1 cm radiopaque gallstone in the dependent portion. No wall thickening or pericholecystic fluid collection is seen. PANCREAS: Unremarkable. SPLEEN: Unremarkable. ADRENAL GLANDS: Unremarkable. KIDNEYS AND URETERS: The kidneys are normal in size, shape, and attenuation. There is a nonobstructive 8 mm and 4 mm radiopaque calculi in the mid pole right kidney. There is a extrarenal right kidney pelvis/cyst or a UPJ obstruction from narrowing or stricture. No perinephric calculi seen at the UPJ. The left kidney pelvis is unremarkable. BLADDER: Unremarkable. GASTROINTESTINAL TRACT: There is scattered stool, diverticula and gas seen throughout the colon without significant distention. The small bowel loops are of normal caliber. Appendix is of normal caliber. No inflammatory process or free air are seen. ABDOMINAL WALL: No significant hernia is appreciated. LYMPH NODES: No abnormal lymph nodes seen. VASCULAR: There is moderate atherosclerotic calcification of the abdominal aorta and both common iliac arteries. No aneurysm dilatation is seen. PELVIC VISCERA: The uterus is midline with a moderate sized calcified fibroid in the fundus measuring 3 cm. There is a smaller calcification in the most superior aspect of the posterior fundus. This is probably another smaller calcified fibroid or part of the larger fibroid. There is no free fluid. Prominent left inguinal lymph node is seen. The largest lymph node measures 1.9 cm. OSSEOUS STRUCTURES: There are degenerative disc changes with vacuum disc phenomena and spondylosis at the L5-S1 disc level. CT/CT abdomen pelvis wo con IMPRESSION: Nonobstructive midpole right renal calculi. There is a moderate dilated right kidney pelvis versus peripelvic cysts. There is no hydronephrosis. Cholelithiasis without wall thickening. Moderate constipation without obstruction. Diffuse colonic diverticulosis most prominent in the sigmoid colon. Calcified uterine fibroids.
--- NOTE | 2020-10-20 11:19 | ED_ITS ---
HPI - Female Genitourinary General Chief complaint: Urogenital-Female Stated complaint: blood in urine Time Seen by Provider: 10/20/20 11:19 Source: patient, family and old records reviewed Mode of arrival: ambulatory Limitations: no limitations History of Present Illness HPI Narrative: 79 yo female hx of PVD, HLD, afib on eliquis, recent dx of dizziness and UTI on 10/03 completed levofloxacin, recent falls, HTN, CHF here with hematuria x 1 no clots this AM at 9am no pain no recent falls no prior history no hx of stones MD elicited complaint: other (hematuria) Onset (ago): minute(s) Severity: mild Vaginal discharge: none Vaginal bleeding: none Urinary symptoms: Hematuria Exacerbating factors: none Relieving factors: none Associated symptoms: denies other symptoms Treatment prior to arrival: none Related Data Home Medications Medication Instructions Recorded Confirmed apixaban 5 mg tablet 5 mg PO BID 05/02/20 10/20/20 gabapentin 100 mg capsule 100 mg PO BID cap 05/02/20 10/20/20 nortriptyline 25 mg capsule 25 mg PO BID cap 05/02/20 10/20/20 atorvastatin 40 mg PO BEDTIME 10/20/20 10/20/20 brimonidine 1 drp OPHTHALMIC-LEFT BID 10/20/20 10/20/20 dorzolamide 1 drp OPHTHALMIC-LEFT BID 10/20/20 10/20/20 furosemide [Lasix] 40 mg PO DAILY 10/20/20 10/20/20 trazodone 50 mg PO BEDTIME PRN 10/20/20 10/20/20 Previous Rx's Medication Instructions Recorded metoprolol succinate 25 mg 25 mg PO DAILY 90 Days #90 tab 05/19/20 tablet,extended release 24 hr allopurinol 100 mg tablet 100 mg PO BID #180 tab 05/31/20 aspirin 81 mg PO DAILY #30 tab 09/29/20 meclizine 25 mg PO TID PRN #30 tab 09/29/20 cefuroxime axetil 250 mg PO BID 7 Days #14 tab 10/20/20 Allergies Allergy/AdvReac Type Severity Reaction Status Date / Time CHAIM Inhibitors Allergy Unknown Cough Verified 10/06/20 15:29 lorazepam [Ativan] AdvReac Unknown blacked out Verified 10/06/20 15:29 zolpidem AdvReac Unknown sleepwalkin Verified 10/06/20 15:29 g Review of Systems Review of Systems: Constitutional : No Weight loss, No Fever, No Chills, No Fatigue, No Malaise ENT/Mouth : No sore throat, No Rhinorrhea Eyes: No Eye Pain, No Swelling, No Redness Cardiovascular : No Chest Pain, No SOB, No Dyspnea on Exertion, No Orthopnea, No Edema, No Palpitations Respiratory : No Cough, No Sputum, No Wheezing Gastrointestinal : No Nausea, No Vomiting, No Diarrhea, No Constipation, No abdominal Pain, No Hematochezia, No Melena Genitourinary : No Dysuria, No Urinary Frequency, pos Hematuria, Musculoskeletal : No joint pain, No Myalgias, No Joint Swelling Skin : No Skin Lesions, No rash Neuro : No Weakness, No Numbness, pos Dizziness, No Headache Psych : No Anxiety/Panic, No Depression Heme/Lymph: No Bruising, No Bleeding,No Lymphadenopathy Endocrine : No Polyuria, No Polydipsia All other systems reviewed and are negative [facility] Past Medical History Attestation statement: The following information was validated with the patient. Medical History (HFpEF) heart failure with preserved ejection fraction Benign essential hypertension Biatrial enlargement Chronic atrial fibrillation Gout Hematuria, microscopic HTN (hypertension) Insomnia Neuropathy Obesity Obesity (BMI 30-39.9) Pure hypercholesterolemia PVD (peripheral vascular disease) Urinary incontinence Surgical History History of cataract surgery History of knee replacement procedure of right knee History of left knee replacement History of tonsillectomy Hx of basal cell carcinoma excision Family History Family History Father Alcoholism Mother Colon cancer Brother No problems noted. Sister In good health Son In good health Son In good health Daughter In good health Daughter In good health Social History Social History Alcohol intake: never Patient Tobacco Use Status: Never used Tobacco Use of substances other than those prescribed or required for medical reasons: No Advance Directives: Yes Advance Directives Information Provided: No Advance Directives on File: No Physical Exam Vital Signs: Vital Signs: Last Vital Signs Temp 97.8 F 10/20/20 11:55 Pulse 80 10/20/20 14:19 Resp 17 10/20/20 14:19 BP 167/69 H 10/20/20 14:19 Pulse Ox 93 10/20/20 14:19 Body Mass Index 34.4 Appearance: Alert. Oriented X3. No acute distress. Eyes: Pupils equal, round and reactive to light. ENT: Pharynx normal. Neck: Normal inspection. Neck supple. CVS: Normal heart rate and rhythm. feet warm to touch but bilateral decreased pulses Respiratory: No respiratory distress. Breath sounds normal. Abdomen: Soft and nontender. Skin: Skin warm and dry. Normal skin color. Normal skin turgor. Extremities: bilateral 1+ lower extremity edema. No calf ttp Neuro: Oriented X 3. No motor deficit. No sensory deficit. Course Course Course Narrative: negative workup at this time stable for DC start on ceftin for UA MDM - Female Genitourinary MDM Narrative Medical decision making narrative: 79 yo female hx of PVD, HLD, afib on eliquis, recent dx of dizziness and UTI on 10/03 completed levofloxacin, recent falls, HTN, CHF here with hematuria x 1 no clots this AM at 9am no pain no recent falls no prior history no hx of stones at this time will need labs, CT scan for mass/stone, UA, EKG, ortho VS dizziness is not new and appears chronic in nature no ICH or acute stroke suspected. Dispo per results and findings Lab Data Result diagrams: 10/20/20 12:16 10/20/20 12:15 Labs: Lab Results 10/20/20 10/20/20 10/20/20 Range/Units 12:15 12:15 12:15 WBC (4.8-10.8) X10*3/uL RBC (4.20-5.50) X10*6/uL Hgb (12.0-16.0) g/dl Hct (37-47) % MCV (80-98) fL MCH (27.0-33.0) pg MCHC (31.0-35.0) g/dl RDW (11.0-16.0) % Plt Count (160-400) X10*3/uL MPV (9.4-12.3) fL Immature Gran % (Auto) (0.0-0.4) % Neut % (Auto) (45-73) % Lymph % (Auto) (20-40) % [place] % (Auto) (2-11) % Eos % (Auto) (0-4) % Baso % (Auto) (0-2) % Lymph # (Auto) (1.2-4.9) X10*3/uL [place] # (Auto) (0.1-1.2) X10*3/uL Eos # (Auto) (0.0-0.4) X10*3/uL Baso # (Auto) (0.0-0.2) X10*3/uL Abs Immat Gran (auto) (0.00-0.03) X10*3/uL Absolute Neuts (auto) (2.0-8.3) X10*3/uL Absolute Nucleated RBC (0.0-0.012) X10*3/uL Nucleated RBC % (auto) (0.0-0.2) /100WBC PT 16.0 H (10.8-13.0) SEC INR 1.3 H (0.9-1.1) APTT 39.5 H (24.1-38.0) SEC Sodium 140 (135-145) mmol/L Potassium 3.4 (3.3-5.1) mmol/L Chloride 100 (96-108) mmol/L Carbon Dioxide 32 H (22-29) mmol/L Anion Gap 11 L (12-20) BUN 13 (9-16) mg/dL Creatinine 1.01 (0.5-1.4) mg/dL Estim Creat Clear Calc 53.0 Estimated GFR 53 Random Glucose 96 (60-115) mg/dL Calcium 9.2 (8.4-10.2) mg/dL Magnesium 2.0 (1.6-2.6) mg/dL Total Bilirubin 0.8 (0.0-1.0) mg/dL Direct Bilirubin 0.4 (0.0-0.5) mg/dL AST 16 (5-31) U/L ALT 9 (0-31) U/L Alkaline Phosphatase 77 (39-117) U/L Total Protein 5.9 L (6.5-8.0) g/dL Albumin 3.9 (3.5-5.0) g/dL Lipase 23 (8-78) U/L Urine Color Urine Appearance Urine pH (5.0-8.0) Ur Specific [place] (1.005-1.025) Urine Protein (NEG-TRACE) MG/DL Urine Glucose (UA) (NEG) MG/DL Urine Ketones (NEG) MG/DL Urine Blood (NEG) Urine Nitrite (NEG) Ur Leukocyte Esterase (NEG) Urine RBC (0) /HPF Urine WBC (0-4) /HPF Ur Squamous Epith Cells /LPF Ur Renal Epithelial Cell /LPF Calcium Oxalate Crystal /LPF Urine Bacteria /LPF Urine Yeast /HPF COVID-19 (BILLY) Negative (Negative) COVID-19 Clin Com See Note 10/20/20 10/20/20 Range/Units 12:16 12:46 WBC 8.8 (4.8-10.8) X10*3/uL RBC 4.17 L (4.20-5.50) X10*6/uL Hgb 12.5 (12.0-16.0) g/dl Hct 39.8 (37-47) % MCV 95.4 (80-98) fL MCH 30.0 (27.0-33.0) pg MCHC 31.4 (31.0-35.0) g/dl RDW 14.3 (11.0-16.0) % Plt Count 211 (160-400) X10*3/uL MPV 8.4 L (9.4-12.3) fL Immature Gran % (Auto) 0.5 H (0.0-0.4) % Neut % (Auto) 69.9 (45-73) % Lymph % (Auto) 16.3 L (20-40) % [place] % (Auto) 9.4 (2-11) % Eos % (Auto) 3.1 (0-4) % Baso % (Auto) 0.8 (0-2) % Lymph # (Auto) 1.4 (1.2-4.9) X10*3/uL [place] # (Auto) 0.8 (0.1-1.2) X10*3/uL Eos # (Auto) 0.3 (0.0-0.4) X10*3/uL Baso # (Auto) 0.1 (0.0-0.2) X10*3/uL Abs Immat Gran (auto) 0.04 H (0.00-0.03) X10*3/uL Absolute Neuts (auto) 6.2 (2.0-8.3) X10*3/uL Absolute Nucleated RBC 0.000 (0.0-0.012) X10*3/uL Nucleated RBC % (auto) 0.0 (0.0-0.2) /100WBC PT (10.8-13.0) SEC INR (0.9-1.1) APTT (24.1-38.0) SEC Sodium (135-145) mmol/L Potassium (3.3-5.1) mmol/L Chloride (96-108) mmol/L Carbon Dioxide (22-29) mmol/L Anion Gap (12-20) BUN (9-16) mg/dL Creatinine (0.5-1.4) mg/dL Estim Creat Clear Calc Estimated GFR Random Glucose (60-115) mg/dL Calcium (8.4-10.2) mg/dL Magnesium (1.6-2.6) mg/dL Total Bilirubin (0.0-1.0) mg/dL Direct Bilirubin (0.0-0.5) mg/dL AST (5-31) U/L ALT (0-31) U/L Alkaline Phosphatase (39-117) U/L Total Protein (6.5-8.0) g/dL Albumin (3.5-5.0) g/dL Lipase (8-78) U/L Urine Color YELLOW Urine Appearance CLEAR Urine pH 5.5 (5.0-8.0) Ur Specific [place] 1.015 (1.005-1.025) Urine Protein NEG (NEG-TRACE) MG/DL Urine Glucose (UA) NEG (NEG) MG/DL Urine Ketones NEG (NEG) MG/DL Urine Blood NEG (NEG) Urine Nitrite NEG (NEG) Ur Leukocyte Esterase 1+ H (NEG) Urine RBC 0-2 (0) /HPF Urine WBC 5-9 H (0-4) /HPF Ur Squamous Epith Cells 1+ /LPF Ur Renal Epithelial Cell TRACE /LPF Calcium Oxalate Crystal TRACE /LPF Urine Bacteria TRACE /LPF Urine Yeast TRACE /HPF COVID-19 (BILLY) (Negative) COVID-19 Clin Com Discharge Plan Discharge Clinical Impression: Urinary tract infection Qualifiers: Urinary tract infection type: acute cystitis Hematuria presence: with hematuria Qualified Code(s): N30.01 - Acute cystitis with hematuria Patient Disposition: Home, Self-Care Instructions: Urinary Tract Infection in Older Adults (ED) Additional Instructions: return to ED for any worsening symptoms or concerns NO BLOOD IN YOUR URINE TODAY CT SCAN FINDINGS CHRONIC IN NATURE Nonobstructive midpole right renal calculi. There is a moderate dilated right kidney pelvis versus peripelvic cysts. There is no hydronephrosis. Cholelithiasis without wall thickening. Moderate constipation without obstruction. Diffuse colonic diverticulosis most prominent in the sigmoid colon. Calcified uterine fibroids. Prescriptions: New cefuroxime axetil 250 mg tablet 250 mg PO BID 7 Days Qty: 14 RF: 0 No Action metoprolol succinate 25 mg tablet extended release 24 hr 25 mg PO DAILY 90 Days Qty: 90 RF: 3 allopurinol 100 mg tablet 100 mg PO BID Qty: 180 RF: 3 meclizine 25 mg tablet 25 mg PO TID PRN (Reason: dizzines) Qty: 30 RF: 0 aspirin 81 mg tablet,chewable 81 mg PO DAILY Qty: 30 RF: 0 trazodone 50 mg tablet 50 mg PO BEDTIME PRN (Reason: insomnia) RF: 0 furosemide [Lasix] 40 mg tablet 40 mg PO DAILY RF: 0 atorvastatin 40 mg tablet 40 mg PO BEDTIME RF: 0 brimonidine 0.2 % Drops 1 drp ophthalmic-Left BID RF: 0 dorzolamide 2 % Drops 1 drp ophthalmic-Left BID RF: 0 apixaban 5 mg tablet 5 mg PO BID RF: 0 gabapentin 100 mg capsule 100 mg PO BID RF: 0 nortriptyline 25 mg capsule 25 mg PO BID RF: 0 Referrals: Kostas Baltazar MD [Primary Care Provider] - 2 days (IF NOT BETTER)
[2020-10-20 11:33] VITALS: BP 158/79; PULSE 75; RESP 20; TEMP 36.6; O2SAT 98; BMI 34.4
[2020-10-20 11:55] VITALS: BP 158/79; PULSE 75; RESP 20; TEMP 36.6; O2SAT 98
--- NOTE | 2020-10-20 12:09 | HE.PHANOTE ---
MED REC COMPLETE, NO ISSUES
[2020-10-20 12:22] LABS: MANUAL DIFF FLAG NO
[2020-10-20 12:25] VITALS: BP 149/60; PULSE 70; RESP 21; O2SAT 89
[2020-10-20 12:27] VITALS: BP 149/60; BP 157/56; PULSE 70; PULSE 79
[2020-10-20 12:30] VITALS: BP 158/71; PULSE 82
[2020-10-20 12:30] LABS: INTERNATIONAL NORM RATIO 1.3 (0.9-1.1)
[2020-10-20 12:33] LABS: Partial Thromboplastin Time 39.5 SEC (24.1-38.0)
[2020-10-20 12:34] LABS: Basophils Absolute Auto 0.1 X10*3/uL (0.0-0.2); Basophils Percent Auto 0.8 % (0-2); Eosinophils Absolute Auto 0.3 X10*3/uL (0.0-0.4); Eosinophils Percent Auto 3.1 % (0-4); Hematocrit 39.8 % (37-47); Hemoglobin 12.5 g/dl (12.0-16.0); Imm Gran Abs Auto 0.04 X10*3/uL (0.00-0.03); Imm Gran Pct Auto 0.5 % (0.0-0.4); Lymphocytes Absolute Auto 1.4 X10*3/uL (1.2-4.9); Lymphocytes Percent Auto 16.3 % (20-40); Mean Corpuscular HGB Conc 31.4 g/dl (31.0-35.0); Mean Corpuscular Volume 95.4 fL (80-98); Mean Platelet Volume 8.4 fL (9.4-12.3); Monocytes Absolute Auto 0.8 X10*3/uL (0.1-1.2); Monocytes Percent Auto 9.4 % (2-11); Neutrophils Absolute Auto 6.2 X10*3/uL (2.0-8.3); Neutrophils Percent Auto 69.9 % (45-73); Platelet Count 211 X10*3/uL (160-400); Red Blood Count 4.17 X10*6/uL (4.20-5.50); Red Cell Distribution Width 14.3 % (11.0-16.0); White Blood Count 8.8 X10*3/uL (4.8-10.8)
[2020-10-20 12:50] LABS: Alanine Aminotransferase 9 U/L (0-31); Albumin Level 3.9 g/dL (3.5-5.0); Alkaline Phosphatase 77 U/L (39-117); Anion Gap 11 (12-20); Aspartate Amino Transferase 16 U/L (5-31); Bilirubin Direct 0.4 mg/dL (0.0-0.5); Bilirubin Total 0.8 mg/dL (0.0-1.0); Blood Urea Nitrogen 13 mg/dL (9-16); COVID-19 Test Negative (Negative); Calcium 9.2 mg/dL (8.4-10.2); Carbon Dioxide 32 mmol/L (22-29); Chloride 100 mmol/L (96-108); Estimated Glomerular Filt Rate 53; Glucose Random 96 mg/dL (60-115); IDNOW Serial# 9DD0AD1C; Lipase 23 U/L (8-78); Potassium 3.4 mmol/L (3.3-5.1); Sodium 140 mmol/L (135-145); Total Protein 5.9 g/dL (6.5-8.0)
[2020-10-20 13:17] LABS: Glucose Urine UA NEG (NEG); Leukocyte Esterase Urine 1+ (NEG); Nitrite Urine NEG (NEG); PH 5.5 (5.0-8.0); Specific Gravity - Urine 1.015 (1.005-1.025); UACC Culture Trigger YES; Urine Blood NEG (NEG); Urine Ketones NEG (NEG); Urine Protein NEG (NEG-TRACE)
[2020-10-20 13:19] LABS: Appearance Urine CLEAR; Color Urine YELLOW
[2020-10-20 13:35] LABS: Bacteria Urine TRACE /LPF; RBC Urine 0-2 /HPF (0); Renal Epithelial Cells Urine TRACE /LPF; Squamous Epithelial Cell Urine 1+ /LPF
[2020-10-20 13:36] LABS: Calcium Oxalate Crystals Urine TRACE /LPF
[2020-10-20 14:19] VITALS: BP 167/69; PULSE 80; RESP 17; O2SAT 93
== END 2020-10-20 16:30 | disposition home or self-care (01) ==
PROVIDERS: Emergency Provider Emergency Medicine; PCP Internal Medicine
DX: N30.01 Acute cystitis with hematuria (principal); I48.91 Unspecified atrial fibrillation; I10 Essential (primary) hypertension; Z20.822 Contact with and (suspected) exposure to COVID-19; Z79.01 Long term (current) use of anticoagulants; Z79.899 Other long term (current) drug therapy
CPT/HCPCS: 36415; 74176; 80048; 80076; 81001; 81003; 83690; 83735; 85025; 85610; 85730; 87086; 87635; 99284

== ENCOUNTER → 2020-10-24 13:36 | Outpatient (BNVA) | payer MEDICARE, SELFPAY | PROVIDERS: PCP Internal Medicine; Visit Provider Internal Medicine Cardiovascular Disease | DX: I50.30 Unspecified diastolic (congestive) heart failure (principal); I48.20 Chronic atrial fibrillation, unspecified | CPT/HCPCS: 99212 ==

== ENCOUNTER 2020-10-25 12:31 | Outpatient (REF) | payer MEDICARE, SELFPAY ==
--- NOTE | ~2020-10-25 | US_ITS ---
EXAMINATION: BILATERAL LOWER EXTREMITY VENOUS ULTRASOUND (Reflux Exam) CLINICAL INDICATION: Venous reflux COMPARISON: Venous reflux exam 01/26/2020 TECHNIQUE: Color flow triplex imaging and compression Doppler was performed to evaluate both the deep and the superficial systems of the bilateral lower extremity. To evaluate the superficial system, the examination was performed in the upright position. Color-flow Doppler ultrasound and compression ultrasound were utilized. In addition, maneuvers were utilized to demonstrate reflux. FINDINGS: RIGHT LOWER EXTREMITY: 1. DEEP VENOUS DOPPLER ULTRASOUND: Common Femoral Vein: Compressible, normal respiratory variation and augmented flow. Femoral vein: Compressible, normal color flow and augmentation. Popliteal Vein: Compressible, normal augmentation. Deep Reflux: There is no evidence of reflux in the deep system in either the common femoral vein or the popliteal vein. There is no evidence of a Smith's cyst. 2. SUPERFICIAL VENOUS DOPPLER ULTRASOUND: GREAT SAPHENOUS VEIN: Saphenofemoral junction: 0.8 cm; 2060 ms Proximal thigh: 0.5 cm; No evidence of reflux. Mid thigh: 0.6 cm; No evidence of reflux. Above knee: 0.3 cm; No evidence of reflux. At knee: 0.3 cm; 376 ms Below knee: 0.3 cm; 1032 ms Mid calf: 0.3 cm; No evidence of reflux. Ankle: 0.4 cm; No evidence of reflux. DUPLICATED GREAT SAPHENOUS VEIN: None SMALL SAPHENOUS VEIN: Saphenopopliteal junction: 0.3 cm; No evidence of reflux. Mid calf: 0.4 cm; No evidence of reflux. Distal calf: Not visualized VEIN OF GIACOMINI: None Imaged. PERFORATORS: There is a 0.3 cm port traffic manager in the proximal thigh. 0.4 cm port traffic manager in the mid calf. VARICOSITIES: 0.4 cm varicose veins in the thigh. 0.3 cm varicose vein in the mid calf. LEFT LOWER EXTREMITY: 1. DEEP VENOUS DOPPLER ULTRASOUND: Common Femoral Vein: Compressible, normal respiratory variation and augmented flow. Femoral vein: Compressible, normal color flow and augmentation. Popliteal Vein: Compressible, normal augmentation. Deep Reflux: There is no evidence of reflux in the deep system in either the common femoral vein or the popliteal vein. There is no evidence of a Smith's cyst. 2. SUPERFICIAL VENOUS DOPPLER ULTRASOUND: GREAT SAPHENOUS VEIN: Saphenofemoral junction: 0.7 cm; No evidence of reflux. Proximal thigh: 0.5 cm; No evidence of reflux. Mid thigh: 0.5 cm; No evidence of reflux. Above knee: 0.4 cm; No evidence of reflux. At knee: 0.4 cm; No evidence of reflux. Below knee: 0.5 cm; No evidence of reflux. Mid calf: 0.2 cm; No evidence of reflux. Ankle: 0.4 cm; No evidence of reflux. DUPLICATED GREAT SAPHENOUS VEIN: None SMALL SAPHENOUS VEIN: Saphenopopliteal junction: 0.5 cm; No evidence of reflux. Mid calf: 0.4 cm; No evidence of reflux. Distal calf: 0.4 cm; No evidence of reflux. VEIN OF GIACOMINI: None Imaged. PERFORATORS: There are a 0.5 and 0.6 cm proximal calf perforators. VARICOSITIES: 0.4 cm varicose veins in the mid thigh, proximal calf, and midcalf. US/US venous duplex LE BI IMPRESSION: 1. No DVT or venous reflux in the deep system. 2. Mild superficial venous reflux in the right lower extremity. 3. Multiple bilateral venous perforators and varicose veins.
== END 2020-10-25 12:32 | disposition home or self-care (01) ==
LOC: HO.US 12:31
PROVIDERS: Visit Provider Surgery Vascular Surgery
DX: I83.893 Varicose veins of bilateral lower extremities with other complications (principal)
CPT/HCPCS: 93970

== ENCOUNTER → 2020-10-27 13:47 | Outpatient (BNVA) | payer MEDICARE, SELFPAY | PROVIDERS: PCP Internal Medicine; Visit Provider Surgery Vascular Surgery | DX: Z01.818 Encounter for other preprocedural examination (principal); I83.11 Varicose veins of right lower extremity with inflammation | CPT/HCPCS: 99212 ==

== ENCOUNTER → 2020-10-28 13:36 | Outpatient (REF) | payer MEDICARE, SELFPAY ==
--- NOTE | 2020-10-28 13:39 | CA_ITS ---
Transthoracic Echocardiogram Patient (Last, First, Middle): Sophia Barragan K Gender: Female Date of : 1940 Age: 79 Procedure Date: 10/28/2020 Procedure Type: Transthoracic Echocardiogram Location: OP Height: 170.18 cm Weight: 99.79 kg BSA: 2.11 m2 Heart Rate: bpm BP: 122 / 80 mmHg Cigar Making Supervisor: Referring MD: Quincy Traore MD Licensed Loan Officer: Quincy Traore MD Symptoms: I50.30 - Unspecified diastolic (congestive) heart failure Study Quality: Technically Difficult ECG Rhythm: Atrial Fibrillation Conclusions: - 1. Normal LV systolic function with restrictive filling pattern 2. Severe biatrial enlargement 3. Mild aortic regurgitation 4. [id number] mitral regurgitation 5. [id number] elevation of right ventricular systolic pressure with normal right atrial pressures 6.No gross pericardial effusion Findings Left Ventricle Normal left ventricular size and systolic function. There is mildly increased left ventricular wall thickness. The visually estimated ejection fraction is between 55-60%. Spectral Doppler is indicative of a restrictive filling pattern. Right Ventricle Mildly increased right ventricular cavity size. There is normal right ventricular systolic function. Atria Severe biatrial enlargement. There is no evidence of interatrial shunt. Aortic Valve There is mild calcification of the aortic valve. There is no aortic valve stenosis. There is mild aortic valve regurgitation. Mitral Valve There is mild anterior and posterior mitral leaflet thickening. There is mild mitral annular calcification. There is mild to moderate mitral valve regurgitation. There is no mitral valve stenosis. Pulmonic Valve The pulmonic valve was not well visualized. Tricuspid Valve Likely normal tricuspid valve structure and function. There is mild tricuspid valve regurgitation. Normal right atrial pressure. Mild to moderate pulmonary hypertension is present. Great Vessels All visible segments of the aorta are normal in size. The pulmonary artery was not well visualized. Venous The inferior vena cava is normal in size and collapses greater than 50% with inspiration. Pericardium/Pleural There is no evidence of pericardial effusion. Prior Study Comparison No significant change compared to prior study dated: 09/15/2018. Measurements 2D Linear Measurements IVSd: 1.31 0.6-0.9/0.6-1.0 cm LVIDd: 4.13 3.9-5.3/4.2-5.9 cm LVIDd Index: 1.96 2.4-3.2/2.2-3.1 cm/m2 LVIDs: 2.66 2.0-3.6 cm LVPWd: 1.29 0.7-1.1 cm Ao Root: 3.40 2.1-3.5 cm LA Diam: 4.50 2.7-3.8/3.0-4.0 cm LAIDs Index: 2.13 1.5-2.3 cm/m2 LV Mass: 243.75 67-162/88-224 g LV Mass Index: 115.52 43-95/49-115 g/m2 LVOT Diam: 2.00 3.0+(-)1.3 cm 2D Systolic Function EF 4C: 42.80 >55% EF 2C: 52.10 >55% Mitral Valve MV Pk E: 1.21 MV Decel Time: 193.00 E'Lateral: 9.25 E'Medial: 7.94 E/E' Med: 15.20 E/E' Lat: 13.10 PHT: 56.00 MVA PHT: 3.93 Decel [place]: 6.29 Aortic Valve AoV Pk [place]: 1.29 AoV Mn [place] Luis: 0.89 AoV VTI: 0.25 AoV Pk Grad: 7.00 Aov Mn Grad: 4.00 BRYAN Cont.VTI: 2.36 LVOT LVOT Pk [place]: 0.88 LVOT Mn Pedro Luis: 0.56 LVOT VTI: 0.19 LVOT Pk Grad: 3.00 LVOT Mn Grad: 1.00 LVOT Diam: 2.00 LVOT Area: 3.14 Diastolic Function MV Pk E: 1.21 E'Medial: 7.94 E/E' Med: 15.20 E' Laterial: 9.25 E/E' Lat: 13.10 Tricuspid Valve TR Pk [place]: 3.27 TR Pk Grad: 43.00 RA Press: 3.00 RVSP: 46.00 Great Vessels Aorta Ao Root-2D: 3.40 2.0-3.7 cm Pulmonary Valve PV Pk Pedro Luis: 1.11 Peak PV Grad: 5.00 Updated in Other Vendor System with Status of Final Quincy Traore MD electronically signed on 10/29/2020 3:21:58 PM with status of Final
== END ==
LOC: HO.CARD 13:36
PROVIDERS: PCP Internal Medicine; Visit Provider Internal Medicine Cardiovascular Disease
DX: I50.30 Unspecified diastolic (congestive) heart failure (principal); I48.20 Chronic atrial fibrillation, unspecified
CPT/HCPCS: 93306

== ENCOUNTER 2020-11-01 17:54 | Outpatient (REF) | payer MEDICARE, SELFPAY | END 2020-11-01 17:55 | disposition home or self-care (01) | LOC: HO.LNP 17:54 | PROVIDERS: Visit Provider Internal Medicine | DX: R30.0 Dysuria (principal); R32 Unspecified urinary incontinence | CPT/HCPCS: 87086 ==

== ENCOUNTER → 2020-12-02 08:26 | Outpatient (BNVA) | payer MEDICARE, SELFPAY | PROVIDERS: PCP Internal Medicine; Visit Provider Surgery Vascular Surgery | DX: I83.11 Varicose veins of right lower extremity with inflammation (principal) | CPT/HCPCS: 36482 ==

== ENCOUNTER 2020-12-05 11:25 | Outpatient (REF) | payer MEDICARE, SELFPAY ==
--- NOTE | ~2020-12-05 | US_ITS ---
EXAMINATION: US VENOUS ULTRASOUND WITH DOPPLER LOWER EXTREMITY, RIGHT CLINICAL INFORMATION: Post venous procedure COMPARISON: Previous exam most recent 10/25/2020 TECHNIQUE: Ultrasound of the deep veins is performed from the hip to the calf with compression sonography and color and pulse Doppler assessment. Spectral analysis with color-flow imaging is performed. FINDINGS: There is normal venous compression and respiratory variation and augmented flow. The visualized common femoral vein, superficial femoral vein, profunda femoral vein, popliteal vein, and the trifurcation region shows no evidence of deep venous thrombosis. There is echogenic material in the right greater saphenous vein post venous procedure. This is 3.1 cm from the saphenofemoral junction. Greater saphenous vein is closed. There is no significant popliteal fossa cyst. US/US venous duplex LE RT IMPRESSION: No DVT demonstrated in the right lower extremity.
== END 2020-12-05 11:26 | disposition home or self-care (01) ==
LOC: HO.HMGCX 11:25
PROVIDERS: PCP Internal Medicine; Visit Provider Surgery Vascular Surgery
DX: M79.604 Pain in right leg (principal)
CPT/HCPCS: 93971

== ENCOUNTER → 2020-12-13 12:51 | Outpatient (BNVA) | payer MEDICARE, SELFPAY | PROVIDERS: PCP Internal Medicine; Visit Provider Surgery Vascular Surgery | DX: I83.11 Varicose veins of right lower extremity with inflammation (principal) | CPT/HCPCS: 99212 ==

== ENCOUNTER 2021-01-20 14:48 | Outpatient (REF) | payer MEDICARE, SELFPAY ==
[2021-01-20 15:17] LABS: MANUAL DIFF FLAG NO
[2021-01-20 15:19] LABS: Basophils Absolute Auto 0.1 X10*3/uL (0.0-0.2); Basophils Percent Auto 0.6 % (0-2); Eosinophils Absolute Auto 0.2 X10*3/uL (0.0-0.4); Eosinophils Percent Auto 2.5 % (0-4); Hemoglobin 13.6 g/dl (12.0-16.0); Imm Gran Abs Auto 0.04 X10*3/uL (0.00-0.03); Imm Gran Pct Auto 0.5 % (0.0-0.4); Lymphocytes Absolute Auto 1.4 X10*3/uL (1.2-4.9); Lymphocytes Percent Auto 15.6 % (20-40); Mean Corpuscular HGB Conc 30.9 g/dl (31.0-35.0); Mean Corpuscular Volume 93.8 fL (80-98); Mean Platelet Volume 8.7 fL (9.4-12.3); Monocytes Absolute Auto 0.6 X10*3/uL (0.1-1.2); Monocytes Percent Auto 7.2 % (2-11); Neutrophils Absolute Auto 6.5 X10*3/uL (2.0-8.3); Neutrophils Percent Auto 73.6 % (45-73); Platelet Count 229 X10*3/uL (160-400); Red Blood Count 4.69 X10*6/uL (4.20-5.50); Red Cell Distribution Width 15.4 % (11.0-16.0); White Blood Count 8.8 X10*3/uL (4.8-10.8)
[2021-01-20 15:38] LABS: Alanine Aminotransferase 9 U/L (0-31); Albumin Level 4.2 g/dL (3.5-5.0); Alkaline Phosphatase 89 U/L (39-117); Anion Gap 12 (12-20); Aspartate Amino Transferase 16 U/L (5-31); Bilirubin Total 1.5 mg/dL (0.0-1.0); Blood Urea Nitrogen 11 mg/dL (9-16); Calcium 9.6 mg/dL (8.4-10.2); Carbon Dioxide 32 mmol/L (22-29); Chloride 102 mmol/L (96-108); Cholesterol 159 mg/dL; Estimated Glomerular Filt Rate 58; Glucose Fasting 129 mg/dL (60-99); HDL Cholesterol 42 mg/dL; LDL Cholesterol Calculated 98 mg/dl; Potassium 3.7 mmol/L (3.3-5.1); Sodium 142 mmol/L (135-145); Total Protein 6.6 g/dL (6.5-8.0); Triglycerides 99 mg/dL
[2021-01-20 15:39] LABS: B Type Natriuretic Peptide 298 pg/mL (<100)
[2021-01-20 15:49] LABS: Glucose Urine UA NEG (NEG); Leukocyte Esterase Urine 1+ (NEG); Nitrite Urine NEG (NEG); UACC Culture Trigger YES; Urine Blood NEG (NEG); Urine Ketones NEG (NEG); Urine Protein NEG (NEG-TRACE)
[2021-01-20 15:51] LABS: Appearance Urine CLEAR; Color Urine YELLOW
[2021-01-20 15:55] LABS: Uric Acid 6.2 mg/dL (2.4-5.7)
[2021-01-20 15:58] LABS: TSH reflex Free T4 1.97 uIU/mL (0.32-4.0)
[2021-01-20 16:00] LABS: Bacteria Urine TRACE /LPF; RBC Urine 0 /HPF (0); Squamous Epithelial Cell Urine 1+ /LPF; WBC Urine 0-2 /HPF (0-4)
[2021-01-20 16:22] LABS: Folate 6.4 ng/mL (> or = 4.0); Vitamin B12 420 pg/mL (200-900)
== END 2021-01-20 14:49 | disposition home or self-care (01) ==
LOC: HO.LAB 14:48
PROVIDERS: PCP Internal Medicine; Visit Provider Internal Medicine
DX: I11.0 Hypertensive heart disease with heart failure (principal); I50.30 Unspecified diastolic (congestive) heart failure; E78.00 Pure hypercholesterolemia, unspecified; I48.20 Chronic atrial fibrillation, unspecified; M10.9 Gout, unspecified; G62.9 Polyneuropathy, unspecified; E66.9 Obesity, unspecified
CPT/HCPCS: 36415; 80053; 80061; 81001; 82607; 82746; 83880; 84443; 84550; 85025; 87086